=== PATIENT | male | born 1990 | race Hispanic/Latino ===

== ENCOUNTER 2018-11-14 12:54 | Emergency (ER) | payer SELFPAY ==
[2018-11-14 15:20] LABS: Absolute Lymphocytes (CBC) 1.8 K/uL (0.7-4.9); Absolute Neutrophil 6.3 K/uL (1.8-8.0); Basophils % 0.4 % (0-1.3); Eosinophils % 0.6 % (0-4.4); Hematocrit 45.7 % (39.6-49.0); Lymphocytes % 19.9 % (15.3-44.8); Monocytes % 10.7 % (3.3-12.3); RBC Red Blood Cell Count 5.04 M/uL (4.33-5.43)
[2018-11-14 15:37] LABS: ALT/SGPT 29 U/L (12-78); AST/SGOT 20 U/L (15-37); Alkaline Phosphatase 85 U/L (45-117); BUN Blood Urea Nitrogen 11 mg/dL (7-18); Bicarbonate 27 mmol/L (21-32); Bilirubin Direct 0.3 mg/dL (0-0.2); Glucose Level 104 mg/dL (74-106); Lipase 65 U/L (73-393); Potassium 3.8 mmol/L (3.5-5.1); Sodium Level 139 mmol/L (136-145)
--- NOTE | 2018-11-14 15:41 | ER ---
Nurse's Notes [facility] Name: Gato Membreno Age: 28 yrs Sex: Male : 1990 Arrival Date: 11/14/2018 Time: 12:56 Bed 9 Private MD: Diagnosis: Upper abdominal pain, unspecified Presentation: 11/14 13:16 Presenting complaint: LUQ pain and N/V x 3 days. Transition of care: patient was not hb received from another setting of care. Onset of symptoms was November 12, 2018. Risk Assessment: Do you want to hurt yourself or someone else? Patient reports no desire to harm self or others. Care prior to arrival: None. 13:16 Method Of Arrival: Ambulatory hb 13:16 Acuity: FRANKLIN 3 hb 15:15 Initial Sepsis Screen: Does the patient meet any 2 criteria? No. Patient's initial aj1 sepsis screen is negative. Does the patient have a suspected source of infection? Yes: Acute abdominal pain. Historical: - Allergies: 13:18 No Known Allergies; hb - Home Meds: 13:18 None [Active]; hb - PMHx: 13:18 None; hb - PSHx: 13:18 Hernia repair; hb - Immunization history:: Adult Immunizations up to date. - Social history:: Smoking status: Patient uses tobacco products, smokes one-half pack cigarettes per day. - Ebola Screening: : No symptoms or risks identified at this time. Screenin:05 Abuse screen: Denies threats or abuse. Denies injuries from another. Nutritional iw screening: No deficits noted. Tuberculosis screening: No symptoms or risk factors identified. Fall Risk None identified. Assessment: 14:04 General: Appears in no apparent distress. Behavior is calm, cooperative. Pain: iw Complains of pain in right upper quadrant. Neuro: Level of Consciousness is awake, alert, obeys commands, Moves all extremities. Full function. Cardiovascular: Patient's skin is warm and dry. Respiratory: Respiratory effort is even, unlabored, Respiratory pattern is regular. GI: Abdomen is flat, Bowel sounds present X 4 quads. Abd is soft and non tender X 4 quads. Reports upper abdominal pain, nausea. : Denies burning with urination. Derm: Skin is intact, is healthy with good turgor. Musculoskeletal: Range of motion: intact in all extremities. 15:14 General: Appears in no apparent distress. comfortable, Behavior is calm, cooperative, aj1 appropriate for age. Neuro: Level of Consciousness is awake, alert, obeys commands. Cardiovascular: Patient's skin is warm and dry. Respiratory: Airway is patent Respiratory effort is even, unlabored, Respiratory pattern is regular, symmetrical. GI: Abdomen is flat, non-distended, Bowel sounds present X 4 quads. Abd is soft and non tender X 4 quads. Derm: No signs and/or symptoms reported regarding the dermatologic system. Skin is pink, warm \T\ dry. normal. Musculoskeletal: No signs and/or symptoms reported regarding the musculoskeletal system. Circulation, motion, and sensation intact. 16:39 Reassessment: Patient appears in no apparent distress at this time. No changes from aj1 previously documented assessment. Patient and/or family updated on plan of care and expected duration. Pain level reassessed. Patient is alert, oriented x 3, equal unlabored respirations, skin warm/dry/pink. Vital Signs: 13:17 BP 135 / 81; Pulse 71; Resp 16; Temp 98.7; Pulse Ox 100% on R/A; Pain 8/10; hb 16:39 BP 132 / 75; Pulse 72; Resp 18; Pulse Ox 97% on R/A; aj1 ED Course: 12:56 Patient arrived in ED. as 13:17 Triage completed. hb 13:17 Arm band placed on. hb 14:01 Elana Delaney, DONIS is Primary Nurse. iw 14:02 Rich Avina PA is PHCP. jr8 14:02 Declan Hu MD is Attending Physician. jr8 14:50 Report received from DONIS Huitron. aj1 15:11 No provider procedures requiring assistance completed. Initial lab(s) drawn, by wi, aj1 sent to lab. Inserted saline lock: 20 gauge in right antecubital area, using aseptic technique. Blood collected. 15:16 Patient has correct armband on for positive identification. aj1 15:22 Patient taken to ultrasound. via wheelchair. hr 15:31 US Abdomen Limited In Process Unspecified. EDMS 15:40 Ganesh Singletary MD is Referral Physician. jr8 16:39 IV discontinued, intact, bleeding controlled, No redness/swelling at site. Pressure aj1 dressing applied. Administered Medications: No medications were administered Outcome: 15:40 Discharge ordered by . yasmeen 16:40 Discharged to home ambulatory. aj1 16:40 Condition: good 16:40 Discharge instructions given to patient, Instructed on discharge instructions, follow up and referral plans. medication usage, Demonstrated understanding of instructions, follow-up care, medications, Prescriptions given X 1. 16:40 Patient left the ED. aj1 Signatures: Dispatcher [employer] EDMS Mary Alice Cruz RN RN aj1 Ann Burton Amelia as Williams, Irene, RN RN iw Roszak, Josh, PA PA jr8 Laura Xiao RN RN hb
--- NOTE | 2018-11-14 15:41 | EDPHYS ---
Physician Documentation [facility] Name: Gato Membreno Age: 28 yrs Sex: Male : 1990 Arrival Date: 11/14/2018 Time: 12:56 Bed 9 Private MD: ED Physician Declan Hu HPI: 11/14 15:21 This 28 yrs old Male presents to ER via Ambulatory with complaints of jr8 Abdominal Pain, Nausea/Vomiting, Back Pain. 15:21 The patient presents with abdominal pain in the epigastric area, in the right upper jr8 quadrant. Onset: The symptoms/episode began/occurred gradually, 2 day(s) ago. The symptoms do not radiate. Associated signs and symptoms: Pertinent positives: nausea and vomiting. The symptoms are described as crampy, intermittent. Modifying factors: The symptoms are alleviated by nothing, the symptoms are aggravated by nothing. Severity of pain: At its worst the pain was moderate in the emergency department the pain is unchanged. The patient has not experienced similar symptoms in the past. The patient has not recently seen a physician. Historical: - Allergies: 13:18 No Known Allergies; hb - Home Meds: 13:18 None [Active]; hb - PMHx: 13:18 None; hb - PSHx: 13:18 Hernia repair; hb - Immunization history:: Adult Immunizations up to date. - Social history:: Smoking status: Patient uses tobacco products, smokes one-half pack cigarettes per day. - Ebola Screening: : No symptoms or risks identified at this time. ROS: 15:21 Eyes: Negative for injury, pain, redness, and discharge, ENT: Negative for injury, jr8 pain, and discharge, Neck: Negative for injury, pain, and swelling, Cardiovascular: Negative for chest pain, palpitations, and edema, Respiratory: Negative for shortness of breath, cough, wheezing, and pleuritic chest pain, Back: Negative for injury and pain, MS/Extremity: Negative for injury and deformity, Skin: Negative for injury, rash, and discoloration, Neuro: Negative for headache, weakness, numbness, tingling, and seizure. 15:21 Abdomen/GI: Positive for abdominal pain, nausea and vomiting, abdominal cramps, Negative for diarrhea, constipation, abdominal distension, anorexia, dysphagia, hematemesis, black/tarry stool, rectal pain, rectal bleeding, bowel incontinence, flatulence. Exam: 15:21 Eyes: Pupils equal round and reactive to light, extra-ocular motions intact. Lids and jr8 lashes normal. Conjunctiva and sclera are non-icteric and not injected. Cornea within normal limits. Periorbital areas with no swelling, redness, or edema. ENT: Nares patent. No nasal discharge, no septal abnormalities noted. Tympanic membranes are normal and external auditory canals are clear. Oropharynx with no redness, swelling, or masses, exudates, or evidence of obstruction, uvula midline. Mucous membranes moist. Neck: Trachea midline, no thyromegaly or masses palpated, and no cervical lymphadenopathy. Supple, full range of motion without nuchal rigidity, or vertebral point tenderness. No Meningismus. Cardiovascular: Regular rate and rhythm with a normal S1 and S2. No gallops, murmurs, or rubs. Normal PMI, no JVD. No pulse deficits. Respiratory: Lungs have equal breath sounds bilaterally, clear to auscultation and percussion. No rales, rhonchi or wheezes noted. No increased work of breathing, no retractions or nasal flaring. Abdomen/GI: Soft, non-tender, with normal bowel sounds. No distension or tympany. No guarding or rebound. No evidence of tenderness throughout. Back: No spinal tenderness. No costovertebral tenderness. Full range of motion. Skin: Warm, dry with normal turgor. Normal color with no rashes, no lesions, and no evidence of cellulitis. MS/ Extremity: Pulses equal, no cyanosis. Neurovascular intact. Full, normal range of motion. Neuro: Awake and alert, GCS 15, oriented to person, place, time, and situation. Cranial nerves II-XII grossly intact. Motor strength 5/5 in all extremities. Sensory grossly intact. Cerebellar exam normal. Normal gait. Vital Signs: 13:17 BP 135 / 81; Pulse 71; Resp 16; Temp 98.7; Pulse Ox 100% on R/A; Pain 8/10; hb 16:39 BP 132 / 75; Pulse 72; Resp 18; Pulse Ox 97% on R/A; aj1 MDM: 14:02 Patient medically screened. jr8 15:39 Differential diagnosis: cholecystitis, Cholelithiasis, diverticulitis, gastritis, jr8 gastroesophageal reflux disease, non-specific abd pain, pancreatitis, Peptic Ulcer Disease. Data reviewed: vital signs, nurses notes, lab test result(s), radiologic studies, ultrasound. Data interpreted: Pulse oximetry: on room air is 100 %. Interpretation: normal. Counseling: I had a detailed discussion with the patient and/or guardian regarding: the historical points, exam findings, and any diagnostic results supporting the discharge/admit diagnosis, lab results, radiology results, the need for outpatient follow up, a portfolio administrator, to return to the emergency department if symptoms worsen or persist or if there are any questions or concerns that arise at home. 11/14 14:51 Order name: Basic Metabolic Panel; Complete Time: 15:39 11/14 14:51 Order name: CBC with Diff; Complete Time: 15:35 11/14 14:51 Order name: Creatinine for Radiology; Complete Time: 16:05 11/14 14:51 Order name: Hepatic Function; Complete Time: 15:39 11/14 14:51 Order name: Lipase; Complete Time: 15:39 11/14 14:53 Order name: US Abdomen Limited; Complete Time: 16:05 11/14 14:51 Order name: IV Saline Lock; Complete Time: 15:14 11/14 14:51 Order name: Labs collected and sent; Complete Time: 15: Administered Medications: No medications were administered Disposition: 11/15 06:49 Co-signature as Attending Physician, Declan Hu MD I agree with the assessment and gladys plan of care. Disposition: 11/14/18 15:40 Discharged to Home. Impression: Upper abdominal pain, unspecified. - Condition is Stable. - Discharge Instructions: Abdominal Pain, Adult, Gastritis, Adult. - Prescriptions for omeprazole 40 mg Oral capsule,delayed release(DR/EC) - take 1 capsule by ORAL route once daily before a meal; 30 capsule. - Work release form, Medication Reconciliation Form, Thank You Letter, Antibiotic Education, Prescription Opioid Use form. - Follow up: Ganesh Singletary MD; When: 5 - 6 days; Reason: Recheck today's complaints, Continuance of care, Re-evaluation by your physician. - Problem is new. - Symptoms have improved. Signatures: Dispatcher [employer] Mary Alice Hathaway RN RN aj1 Declan Hu MD MD cha Roszak, Josh, PA PA jr8 Laura Xiao, RN RN Corrections: (The following items were deleted from the chart) 11/14 16:40 15:40 11/14/2018 15:40 Discharged to Home. Impression: Upper abdominal pain, aj1 unspecified. Condition is Stable. Forms are Medication Reconciliation Form, Thank You Letter, Antibiotic Education, Prescription Opioid Use. Follow up: Ganesh Singletary; When: 5 - 6 days; Reason: Recheck today's complaints, Continuance of care, Re-evaluation by your physician. Problem is new. Symptoms have improved. jr8
--- NOTE | 2018-11-14 15:47 | RAD REPORT ---
EXAM DESCRIPTION: US - Abdomen Exam Limited - 11/14/2018 3:30 pm CLINICAL HISTORY: r/o GB COMPARISON: No comparisons FINDINGS: The gallbladder demonstrates no gallstones. No pericholecystic fluid or gallbladder wall t hickening. The common bile duct is normal measuring 2 mm. The liver demonstrates no findings of intrahepatic biliary dilatation. IMPRESSION: Unremarkable examination.
== END 2018-11-14 16:40 | disposition home or self-care (01) ==
LOC: ER 12:54
DX: R10.10 Upper abdominal pain, unspecified (principal); F17.210 Nicotine dependence, cigarettes, uncomplicated
CPT/HCPCS: 36415; 76705; 80048; 80076; 83690; 85025; 99284